=== PATIENT | female | born 1970 | race Caucasian/White ===

== ENCOUNTER 2024-09-17 19:30 | Observation (INO) ==
--- NOTE | 2024-09-17 19:54 | Emergency Department Note ---
HPI - General Adult General Chief complaint: General Complaint Stated complaint: HIGH BLOOD SUGAR Time Seen by Provider: 09/17/24 19:50 Source: patient Mode of arrival: walk-in Limitations: no limitations History of Present Illness HPI narrative: 53 Y/O Female presents to the ED with concerns for elevated BLOOD GLUCOSE level, she states at home her blood sugar was > 400 which prompt a viist to the ED. She states she is DM II oral agents only, ran out of her medication today, PCP did not call in new prescription. Related Data Allergies Allergy/AdvReac Type Severity Reaction Status Date / Time codeine Allergy Mild Verified 09/17/24 19:55 Review of Systems Narrative 53 Y/O Female presents to the ER with co ncerns for elevated blood sugars. Excessive thrist and urination since earlier today. Reports she is out of her DM medications. Called her PCP office no answer, which prompt a visit to the ER. Denies abdominal pain, N/V, or diarrhea. Status of ROS 10 or more systems reviewed and unremark able except as noted in history and below Constitutional Denies: fever or chills Eyes Denies: change in vision, blurry vision or blind spots Cardiovascular Denies: chest pain, palpitations or shortness of breath when lying down Respiratory Denies: shortness of breath or cough Gastrointestinal Denies: abdominal pain, nausea, vomiting, diarrhea or constipation Neurological Denies: headache, dizziness or vertigo Psychiatric Denies: anxiety Endocrine Reports: excessive urination and excessive thirst PFSH PFSH Medical History (Updated 09/17/24 @ 20:10 by Lala Dey RN) History of umbilical hernia Depression Anxiety Diabetes Surgical History (Updated 09/17/24 @ 20:10 by Lala Dey RN) H/O: hysterectomy History of foot surgery History of cholecystectomy Social History Smoking status: current every day smoker Exam Constitutional: normal general appearance, no limitations and alert Vital Signs - 24 hr 09/17/24 19:40 Temperature 98.3 F Pulse Rate 82 Respiratory Rate 18 Blood Pressure 139/67 Pulse Oximetry 97 Oxygen Delivery Me thod Room Air HENMT: normocephalic and head/scalp atraumatic Eyes: PERRL and EOMs intact bilaterally Respiratory: breath sounds equal bilaterally and normal respiratory effort Cardiovascular: normal heart rate noted and regular rhythm noted Extremities: normal to inspection, no tenderness and full ROM Neurology: home support worker II-XII intact, gait normal, speech normal, coordination normal and GCS normal Skin: skin color normal Course Course Hospital Course: Patient here for hyperglycemia. Paitent also noted with EVA, and hyponatremia. Patient will be admitted for dehydration, hyperglycemia. Patient agrees wiht the admission plans. 2057 - I called UR for admission, no answer. 2101 - I texted Dr. Birch for admission. 2109 - Admission orders placed. Reevaluation(s) Time: 21:00 Vital Signs Vital signs: Vital Signs Temperature 98.3 F 09/17/24 19:40 Pulse Rate 82 09/17/24 19:40 Respiratory Rate 18 09/17/24 19:40 Blood Pressure 139/67 09/17/24 19:40 Pulse Oximetry 97 09/17/24 19:40 Oxygen Delivery Method Room Air 09/17/24 19:40 Temperature 98.3 F 09/17/24 19:40 Pulse Rate 82 09/17/24 19:40 Respiratory Rate 18 09/17/24 19:40 Blood Pressure 139/67 09/17/24 19:40 Pulse Oximetry 97 09/17/24 19:40 Oxygen Delivery Method Room Air 09/17/24 19:40 Medical Decision Making MDM Narrative Medical decision making narrative: Patient seen today for elevated glucose level. labs noted hyponatremia with EVA, Cr 1.9, patient also noted to have hyperglycemia. Lab Data Labs: Lab Results 09/17/24 Range/Units 20:00 WBC 6.8 (4.3-9.3) K/uL RBC 4.3 (4.00-5.50) M/uL Hgb 13.3 (12.5-15.8) gm/dL Hct 38.8 (35.9-46.7) % MCV 91.0 (81.0-93.7) fl MCH 31.2 (27.6-32.2) pg MCHC 34.3 (33.1-35.3) g/dl RDW 13.4 (11.4-14.2) % Plt Count 308 (152-353) K/uL MPV 8.0 (6.9-10.8) fl Gran % 48.5 (47.8-71.3) % Lymph % (Auto) 40.6 (20.0-43.0) % [place] % (Auto) 8.3 (3.6-9.8) % Eos % (Auto) 1.4 (0.4-2.8) % Baso % (Auto) 1.2 H (0.1-0.85) Lymph # (Auto) 2.8 (1.1-3.1) [place] # (Auto) 0.6 L (1.1-3.1) Eos # (Auto) 0.1 (0.0-0.2) Baso # (Auto) 0.1 (0.0-0.1) Absolute Gran (auto) 3.3 (2.3-6.0) Sodium 131 L (136-145) mmol/L Potassium 5.0 (3.6-5.2) mmol/L Chloride 96.0 L (98-107) mmol/L Carbon Dioxide 24 (21-32) mmol/L Anion Gap 11.0 (4-14) mEq/L BUN 28 H (7-18) mg/dL Creatinine 1.9 H (0.6-1.3) mg/dL Estimated GFR 30.8 (>59.9) Glucose 456 H* (70-110) mg/dL Calcium 8.9 (8.5-10.1) mg/dL Total Bilirubin 0.27 (0.0-1.0) mg/dL AST 15 (15-37) U/L ALT 29 L (30-65) U/L Alkaline Phosphatase 106 (50-136) U/L Total Protein 7.5 (6.4-8.2) g/dL Albumin 3.8 (3.4-5.0) g/dL Discharge Plan Discharge Patient Disposition: Admitted As Inpatient Condition: Stable Clinical Impression: EVA (acute kidney injury), Hyperglycemia Time of Disposition: 21:10
[2024-09-17 20:25] LABS: Basophils #(Absolute) Auto 0.1 (0.0-0.1); Basophils%(Percent) Auto 1.2 (0.1-0.85); Eosinophils#(Absolute)Auto 0.1 (0.0-0.2); Eosinophils%(Percent) Auto 1.4 % (0.4-2.8); Granulocytes % - Auto 48.5 % (47.8-71.3); Granulocytes#(Absolute)- Auto 3.3 (2.3-6.0); Hematocrit 38.8 % (35.9-46.7); Monocytes #(Absolute)- Auto 0.6 (1.1-3.1); Monocytes %(Percent)- Auto 8.3 % (3.6-9.8); Platelet Count 308 K/uL (152-353); White Blood Count 6.8 K/uL (4.3-9.3)
[2024-09-17] MEDS ORDERED: ACETAMINOPHEN 500 MG TABLET PO PRN (21:11)
[2024-09-17] MEDS ORDERED: MAGNESIUM, ALUMINUM HYDROXIDE 30 ML ORAL.SUSP PO PRN (21:11)
[2024-09-17] MEDS ORDERED: bisacodyL 10 MG SUPP.RECT PR PRN (21:11)
[2024-09-17] MEDS: 0.9 % SODIUM CHLORIDE 1000 ML 1,000 ML IV SCH (23:37)
--- NOTE | 2024-09-18 01:37 | Event Note ---
Event Note Event Note: 0134 - Call received from DENG Singh. Patient is requesting to be able to take her Seroquel 150 mg to help her sleep. One-time dose of Seroquel 150 mg (patient's home med) ordered. Will defer to hospitalist tomorrow to decide whether to continue or hold.
[2024-09-18] MEDS: QUETIAPINE FUMARATE 100 MG TABLET PO ONE (02:00)
[2024-09-18 06:44] LABS: Basophils%(Percent) Auto 0.8 (0.1-0.85); Eosinophils#(Absolute)Auto 0.1 (0.0-0.2); Eosinophils%(Percent) Auto 1.5 % (0.4-2.8); Granulocytes % - Auto 37.3 % (47.8-71.3); Granulocytes#(Absolute)- Auto 2.2 (2.3-6.0); Hematocrit 36.8 % (35.9-46.7); Mean Corpuscular Volume 89.8 fl (81.0-93.7); Monocytes #(Absolute)- Auto 0.5 (1.1-3.1); Monocytes %(Percent)- Auto 8.8 % (3.6-9.8); Platelet Count 272 K/uL (152-353); White Blood Count 5.9 K/uL (4.3-9.3)
[2024-09-18 07:01] LABS: Potassium 3.9 mmol/L (3.6-5.2)
[2024-09-18 08:08] VITALS: RESP 20
[2024-09-18] MEDS ORDERED: clonazePAM 1 MG TABLET PO PRN (12:00)
[2024-09-18] MEDS ORDERED: CITALOPRAM HYDROBROMIDE 20 MG TABLET PO SCH (12:00)
[2024-09-18 12:16] VITALS: BP 130/70; PULSE 84; TEMP 98
--- NOTE | 2024-09-18 15:03 | Short Stay Summary ---
H&P: HPI History of Present Illness Chief complaint: EVA Narrative: 53 Y/O Female presented to the ED with concerns for elevated BLOOD GLUCOSE level, she stated at home her blood sugar was > 400 which prompted a visit to the ED. She states she is DM II oral agents only, ran out of her medication on this day, PCP did not call in new prescription. Admitted patient to med/surg for observation and treatment. Review of Systems Status of ROS 10 or more systems reviewed and unremark able except as noted in history and below Constitutional Denies: fever or chills Eyes Denies: change in vision, blurry vision or blind spots Ears, nose, mouth, and throat Denies: vertigo Cardiovascular Denies: chest pain, palpitations, shortness of breath with exertion or shortness of breath when lying down Respiratory Denies: shortness of breath or cough Gastrointestinal Denies: abdominal pain, nausea, vomiting, diarrhea or constipation Neurological Denies: headache, dizziness or vertigo Psychiatric Denies: anxiety Endocrine Reports: excessive urination and excessive thirst PFSH PFSH Medical History (Updated 09/19/24 @ 08:32 by Mercy Birch DO) Gastroparesis due to DM Diabetes with neurologic complications Bipolar 1 disorder, mixed, severe [id number] kidney injury Hyperlipidemia associated with type 2 diabetes mellitus Hypertension History of umbilical hernia Depression Anxiety Diabetes Surgical History (Updated 09/17/24 @ 20:10 by Lala Dey RN) H/O: hysterectomy History of foot surgery History of cholecystectomy Social History Smoking status: current every day smoker Problems where you live: no known problems Highest level of school completed/degree received: high school Meds Home Medications and Allergies Home Medications Medication Instructions Recorded Confirmed Type buspirone 15 mg tablet 15 mg PO DAILY 09/18/24 09/18/24 History citalopram 20 mg tablet 20 mg PO DAILY 09/18/24 09/18/24 History clonazepam 1 mg tablet 1 mg PO Q12H PRN anxiety 09/18/24 09/18/24 History glipizide 10 mg tablet 10 mg PO BID 09/18/24 09/18/24 History insulin NPH-regular 70-30 U-100 23 unit (0.23 mL) subcut BID dm #5 09/18/24 09/18/24 Rx insulin 100 unit/mL subcutaneous pens pen (Novolin 70-30 FlexPen U-100 Insulin) lamotrigine 200 mg tablet 200 mg PO BEDTIME 09/18/24 09/18/24 History levothyroxine 50 mcg tablet 50 mcg PO DAILY 09/18/24 09/18/24 History losartan 25 mg tablet 25 mg PO DAILY htn #20 tabs 09/18/24 Rx metformin 1,000 mg tablet 1,000 mg PO Q12H dm #60 tabs 09/18/24 09/18/24 Rx quetiapine 300 mg tablet 300 mg PO BEDTIME 09/18/24 09/18/24 History rosuvastatin 5 mg tablet (Crestor) 5 mg PO DAILY lipids #30 tabs 09/18/24 Rx Allergies Allergy/AdvReac Type Severity Reaction Status Date / Time codeine Allergy Mild Verified 09/17/24 19:55 Exam Exam: Patient in low cortez's position upon entering room for exam. Patient stated she is "already feeling a lot better", since blood sugar level has been controlled. Constitutional: normal general appearance, no apparent distress, average body habitus, no limitations and alert Vital Signs - 24 hr 09/17/24 19:40 09/17/24 20:00 09/17/24 20:30 Temperature 98.3 F Pulse Rate 82 81 79 Pulse Rate [Bilate ral] Respiratory Rate 18 18 18 Blood Pressure 139/67 138/69 129/69 Blood Pressure [Le ft Radial Artery] Pulse Oximetry 97 96 [facility] 09/17/24 21:00 09/17/24 21:30 09/17/24 22:00 Temperature Pulse Rate 78 80 81 Pulse Rate [Bilate ral] Respiratory Rate 19 16 19 Blood Pressure 127/79 149/73 131/73 Blood Pressure [Le ft Radial Artery] Pulse Oximetry 96 96 97 [facility] Room [facility] Room Air 09/17/24 22:30 09/17/24 23:00 09/17/24 23:30 Temperature Pulse Rate 79 84 79 Pulse Rate [Bilate ral] Respiratory Rate 18 18 18 Blood Pressure 136/70 138/64 134/61 Blood Pressure [Le ft Radial Artery] Pulse Oximetry 96 97 96 [facility] Room Air 09/18/24 00:00 09/18/24 03:39 09/18/24 08:00 Temperature 97.7 F 97.7 F 97.7 F Pulse Rate Pulse Rate [Bilate ral] 82 61 87 Respiratory Rate 19 17 20 Blood Pressure Blood Pressure [Le ft Radial Artery] 136/75 93/46 102/63 Pulse Oximetry 94 L 96 96 Oxygen Delivery Me thod Room Air Room Air Room Air 09/18/24 12:00 Temperature 98 F Pulse Rate Pulse Rate [Bilate ral] 84 Respiratory Rate 20 Blood Pressure Blood Pressure [Le ft Radial Artery] 130/70 Pulse Oximetry 95 Oxygen Delivery Me thod Room Air HENMT: normocephalic and head/scalp atraumatic Eyes: PERRL and EOMs intact bilaterally Neck/C-Spine: visual inspection normal, trachea midline, cervical spine nontender, cervical full ROM noted and supple Lymph: no lymphadenopathy noted and no lymphedema noted Chest: inspection of chest normal and palpation of chest normal Respiratory: breath sounds equal bilaterally and normal respiratory effort Cardiovascular: normal heart rate noted and regular rhythm noted Gastrointestinal: abdomen normal to inspection, abdomen soft to palpation, nondistended and normoactive bowel sounds Genitourinary: no CVA tenderness and bladder normal to palpation Back/Pelvis: spine normal to inspection, no thoracic spine tenderness, no lumbar spine tenderness, thoracic spine ROM normal and lumbar spine ROM normal Extremities: normal to inspection, no tenderness and full ROM Neurology: pre sales network engineer II-XII intact, gait normal, speech normal, coordination normal and GCS normal Psychiatry: Mental Status Exam documented within this Exam's Psych section mental status grossly normal, oriented x3, thought process normal, cooperative, affect normal, psychomotor activity normal and memory normal Skin: skin color normal and skin turgor normal Assessment and Plan Assessment and Plan (1) Secondary diabetes with hyperglycemia hyperosmolar non-ketotic coma: Assessment and Plan: Insulin Regular per sliding scale SUBQ PRN fluid IV hydration encourage oral intake of fluids Code(s): E13.01 - Other specified diabetes mellitus with hyperosmolarity with coma (2) [id number] kidney injury: Assessment and Plan: Sodium Chloride 1,000 mls @ 200 mls/hr IV CONT Qualifiers: Acute renal failure type: unspecified Chronic kidney disease stage: unspecified stage Qualified Code(s): N17.9 - Acute kidney failure, unspecified; N18.9 - Chronic kidney disease, unspecified Code(s): N17.9 - Acute kidney failure, unspecified; N18.9 - Chronic kidney disease, unspecified (3) Bipolar 1 disorder, mixed, severe: Assessment and Plan: Restarted home medications Citalopram Hydrobromide 20 mg PO BID Quetiapine Fumarate 300 mg PO Bedtime Code(s): F31.63 - Bipolar disorder, current episode mixed, severe, without psychotic features (4) Anxiety: Assessment and Plan: Restarted home medications. Clonazepam 1 mg PO Q12H PRN Code(s): F41.9 - Anxiety disorder, unspecified (5) Constipation: Assessment and Plan: Magnesium Hydroxide 30 ml PO Daily PRN Bisacodyl 10 mg IA Daily PRN Qualifiers: Constipation type: unspecified constipation type Qualified Code(s): K59.00 - Constipation, unspecified Code(s): K59.00 - Constipation, unspecified (6) Dehydration: Code(s): E86.0 - Dehydration (7) Gastroparesis due to DM: Code(s): E11.43 - Type 2 diabetes mellitus with diabetic autonomic (poly)neuropathy; K31.84 - Gastroparesis (8) Diabetes with neurologic complications: Assessment and Plan: restart home diabetic medications as she has been out for a week trying to get them refilled but has been unsuccessful Qualifiers: Diabetes mellitus complication detail: with polyneuropathy Diabetes mellitus customer acquisition specialist insulin use: with nursing home use Diabetes mellitus type: type 2 Qualified Code(s): E11.42 - Type 2 diabetes mellitus with diabetic polyneuropathy; Z79.4 - correction (current) use of insulin Code(s): E11.49 - Type 2 diabetes mellitus with other diabetic neurological complication Plan Home medications were restarted. Blood sugar managed by sliding scale protocol. Patient ready to discharge home for self-care. Results Labs Labs: CBC WBC 5.9 K/uL (4.3-9.3) 09/18/24 06:20 RBC 4.1 M/uL (4.00-5.50) 09/18/24 06:20 Hgb 12.6 gm/dL (12.5-15.8) 09/18/24 06:20 Hct 36.8 % (35.9-46.7) 09/18/24 06:20 MCV 89.8 fl (81.0-93.7) 09/18/24 06:20 MCH 30.7 pg (27.6-32.2) 09/18/24 06:20 MCHC 34.2 g/dl (33.1-35.3) 09/18/24 06:20 RDW 13.1 % (11.4-14.2) 09/18/24 06:20 Plt Count 272 K/uL (152-353) 09/18/24 06:20 MPV 7.7 fl (6.9-10.8) 09/18/24 06:20 Gran % 37.3 % (47.8-71.3) L 09/18/24 06:20 Lymph % (Auto) 51.6 % (20.0-43.0) H 09/18/24 06:20 [place] % (Auto) 8.8 % (3.6-9.8) 09/18/24 06:20 Eos % (Auto) 1.5 % (0.4-2.8) 09/18/24 06:20 Baso % (Auto) 0.8 (0.1-0.85) 09/18/24 06:20 Lymph # (Auto) 3.1 (1.1-3.1) 09/18/24 06:20 [place] # (Auto) 0.5 (1.1-3.1) L 09/18/24 06:20 Eos # (Auto) 0.1 (0.0-0.2) 09/18/24 06:20 Baso # (Auto) 0.0 (0.0-0.1) 09/18/24 06:20 Absolute Gran (auto) 2.2 (2.3-6.0) L 09/18/24 06:20 BMP Sodium 137 mmol/L (136-145) 09/18/24 06:20 Potassium 3.9 mmol/L (3.6-5.2) 09/18/24 06:20 Chloride 103.0 mmol/L (98-107) 09/18/24 06:20 Carbon Dioxide 25 mmol/L (21-32) 09/18/24 06:20 Anion Gap 9.0 mEq/L (4-14) 09/18/24 06:20 BUN 22 mg/dL (7-18) H 09/18/24 06:20 Creatinine 1.7 mg/dL (0.6-1.3) H 09/18/24 06:20 Estimated GFR 35.2 (>59.9) 09/18/24 06:20 Glucose 208 mg/dL (70-110) H 09/18/24 06:20 Calcium 8.5 mg/dL (8.5-10.1) 09/18/24 06:20 Total Bilirubin 0.27 mg/dL (0.0-1.0) 09/18/24 06:20 AST 12 U/L (15-37) L 09/18/24 06:20 ALT 23 U/L (30-65) L 09/18/24 06:20 Alkaline Phosphatase 80 U/L (50-136) 09/18/24 06:20 Total Protein 6.7 g/dL (6.4-8.2) 09/18/24 06:20 Albumin 3.4 g/dL (3.4-5.0) 09/18/24 06:20 Liver Function Total Bilirubin 0.27 mg/dL (0.0-1.0) 09/18/24 06:20 AST 12 U/L (15-37) L 09/18/24 06:20 ALT 23 U/L (30-65) L 09/18/24 06:20 Alkaline Phosphatase 80 U/L (50-136) 09/18/24 06:20 Total Protein 6.7 g/dL (6.4-8.2) 09/18/24 06:20 Albumin 3.4 g/dL (3.4-5.0) 09/18/24 06:20 DS: Providers Provider Date of admission: 09/17/24 21:11 Primary care physician: Mercy Birch DO Admitting clinician: Alexus Escalera Attending physician on admission: Mercy Birch Attending physician on discharge: Mercy Birch Discharging clinician: Mercy Birch Anticipated date of discharge: 09/18/24 DS: Summary Hospital Course Hospital Course: 53 Y/O Female presented to the ED with concerns for elevated BLOOD GLUCOSE level, she stated at home her blood sugar was > 400 which prompted a visit to the ED. She states she is DM II oral agents only, ran out of her medication on this day, PCP did not call in new prescription. Admitted patient to med/surg for observation and treatment. Patient was restarted on home medications, Clonazepam 1 mg PO Q12H PRN, Quetiapine Fumarate 300 mg PO Bedtime, and Citalopram Hydrobromide 20 mg PO BID. Mrs. Francis has responded well to treatment plan for stabilizing glucose levels with Insulin Regular per sliding scale protocol SUBQ PRN. 0.9% Sodium Chloride 1,000 mll @ 200 mls/hr IV CONT was used to replenish fluids during hospital stay. Preventative measures were taken for constipation with Bisacodyl 10 mg IA Daily PRN and Magnesium Hydroxide 30 ml PO Daily PRN. Patient is ready for discharge home for self care at this time. She was informed to follow up with PCP in 5-7 days of discharge and to keep a blood sugar journal to be reviewed at time of post hospital visit. Provider recommends a follow up with ethylbenzene oxidizer due to [id number] kidney injury. Status at Discharge Functional status at discharge: independent ambulation Overall status at discharge: patient is back to baseline Time Spent with Patient Time attestation: Total time spent providing and/or coordinating discharge services: Discharge Plan Discharge Disposition: Home, Self-Care Condition: Improved Discharge Medications: New losartan 25 mg tablet 25 mg PO DAILY Qty: 20 0RF rosuvastatin [Crestor] 5 mg tablet 5 mg PO DAILY Qty: 30 0RF Continued citalopram 20 mg tablet 20 mg PO DAILY Patient Comments: TAKE 1 TABLET BY MOUTH ONCE DAILY clonazepam 1 mg tablet 1 mg PO Q12H PRN (Reason: anxiety) Patient Comments: TAKE 1 TABLET BY MOUTH TWICE DAILY NEEDED lamotrigine 200 mg tablet 200 mg PO BEDTIME Patient Comments: TAKE 1 TABLET BY MOUTH AT BEDTIME quetiapine 300 mg tablet 300 mg PO BEDTIME Patient Comments: TAKE 1 TABLET BY MOUTH AT BEDTIME glipizide 10 mg tablet 10 mg PO BID Patient Comments: TAKE 1 TABLET BY MOUTH TWICE DAILY Changed metformin 1,000 mg tablet 1,000 mg PO Q12H Qty: 60 0RF Patient Comments: TAKE 1 TABLET BY MOUTH TWICE DAILY Novolin 70-30 FlexPen U-100 100 unit/mL (70-30) insulin pen 23 unit subcut BID Qty: 5 0RF No Action buspirone 15 mg tablet 15 mg PO DAILY Patient Comments: TAKE 1 TABLET BY MOUTH ONCE DAILY IN THE AFTERNOON levothyroxine 50 mcg tablet 50 mcg PO DAILY Discharge Orders: Discharge Order (Routine); Ordered 09/18/24 Ordered By: Mercy Birch Activity: increase activity as tolerated Activity Detail: needs daily cardio exercise for 30 minutes per day total Diet: diabetic diet Interventions: MED/SURG & ICU Observation Charge Sheet Last Done: 09/18/24 14:33 Activity Restrictions/Additional Instructions: follow up PCP in 7-10 days with BS journal and increase water intake Forms: Portal/Health Info Access Inst Follow-Ups: [facility] [Other] - 09/26/24 9:30 am Discharge Date/Time: 09/18/24 14:33
[2024-09-18] MEDS ORDERED: QUETIAPINE FUMARATE 300 MG TABLET PO SCH (21:00)
== END 2024-09-18 14:33 | disposition home or self-care (01) ==
LOC: ED 19:30 → MS 19:30
PROVIDERS: ADMIT Emergency Medical Technician, Intermediate; ATTEND Family Medicine
DX: F41.9 Anxiety disorder, unspecified; N17.8 Other acute kidney failure; Z79.4 Long term (current) use of insulin; E11.65 Type 2 diabetes mellitus with hyperglycemia; K59.00 Constipation, unspecified; Z72.0 Tobacco use; I12.9 Hypertensive chronic kidney disease with stage 1 through stage 4 chronic kidney disease, or unspecified chronic kidney disease; F31.63 Bipolar disorder, current episode mixed, severe, without psychotic features; E11.00 Type 2 diabetes mellitus with hyperosmolarity without nonketotic hyperglycemic-hyperosmolar coma (NKHHC); E11.43 Type 2 diabetes mellitus with diabetic autonomic (poly)neuropathy; N18.9 Chronic kidney disease, unspecified; K31.84 Gastroparesis; E11.42 Type 2 diabetes mellitus with diabetic polyneuropathy; E86.0 Dehydration